=== PATIENT | male | born 1950 | race Caucasian/White ===

== ENCOUNTER 2024-05-23 10:01 | Emergency (ER) | payer MEDICARE, OTHER, SELFPAY ==
[2024-05-23 10:13] VITALS: BP 165/95
[2024-05-23 10:21] LABS: Glucose - Point of Care 271 mg/dl (70-99)
[2024-05-23 10:37] LABS: % Basophils 0.6 % (0-2); % Eosinophils 1.1 % (0-6); % Immature Granulocytes 0.3 % (0-0.5); % Lymphocytes 12.9 % (20.5-51.1); % Monocytes 9.9 % (1.7-9.3); % Neutrophils 75.2 % (42.2-75.2); Absolute Eosinophils 0.1 10^3/uL (0-0.7); Absolute Lymphocytes 0.9 10^3/uL (1.2-3.4); Absolute Monocytes 0.7 10^3/uL (0.1-0.6); Absolute Neutrophils 5.3 10^3/uL (1.4-6.5); Hematocrit 38.8 % (39.0-52.0); Hemoglobin 12.9 g/dL (13.0-18.0); Mean Corp Hgb Conc. 33.2 g/dL (33.0-37.0); Mean Corpuscular Hgb 28.5 pg (27.0-31.0); Mean Corpuscular Volume 85.8 fL (80.0-94.0); Mean Platelet Volume 9.7 fL (7.4-10.4); Nucleated Red Blood Cells % 0 % (-); Platelet Count 271 10^3/uL (130-400); Red Blood Cell Count 4.52 10^6/uL (4.70-6.10); Red Cell Dist. Width 13.2 % (11.5-14.5)
[2024-05-23 10:57] LABS: ALT (SGPT) 15 U/L (0-50); AST (SGOT) 19 U/L (17-59); Albumin 3.6 g/dl (3.5-5.0); Alkaline Phosphatase 93 U/L (38-126); Blood Urea Nitrogen 20 mg/dl (9-20); Calcium 9.2 mg/dl (8.4-10.2); Carbon Dioxide 23 mmol/L (22-30); Chloride 97 mmol/L (98-107); Glucose 311 mg/dl (70-99); Lipase 117 U/L (23-300); Potassium 3.8 mmol/L (3.5-5.1); Sodium 134 mmol/L (135-145); eGFR > 60.00
[2024-05-23 11:05] LABS: B-Hydroxybutyrate 3.26 mmol/L (0.02-0.27)
[2024-05-23 11:38] LABS: COVID-19 Antigen Negative (Negative)
[2024-05-23 12:33] VITALS: BP 137/83
--- NOTE | 2024-05-23 13:12 | ED.GENMED ---
History of Present Illness
<Gisell Panda PA-C - Last Filed: 05/23/24 19:40>
General
Chief Complaint: Pneumonia Symptoms
Source: patient
Exam Limitations: none
Time Seen by Provider: 05/23/24 13:04
Nursing documentation reviewed up to this point in time: agreed with
History of Present Illness
History of Present Illness:
73-year-old male with past medical history of hypertension, hyperlipidemia, insulin-dependent diabetes, GERD who presents emergency department today with concerns of generalized weakness and high blood sugars. Patient reports that on May 06, he
[place] diagnosed with [place]. Patient reports that since then, he has had a persistent cough and feels like he is not getting better. Patient was treated with amoxicillin and azithromycin. Patient had a x-ray
at the time which confirmed a pneumonia. Patient denies any fevers or chills at home. Patient feels like his cough is not going away. Patient also reports that he has had a decreased appetite and this past week, he did have episode of nausea but
no vomiting. Denies any belly pain. He states that he is had trouble controlling his blood sugars recently. He denies any burning with urination, denies any diarrhea.
Review of Systems
<Gisell Panda PA-C - Last Filed: 05/23/24 19:40>
Review of Systems
All Other Systems: ROS reviewed and negative except as documented in HPI and ROS
Phy Exam
<Gisell Panda PA-C - Last Filed: 05/23/24 19:40>
Physical Exam
Physical Exam:
General: Patient is well appearing and in no acute distress; non-toxic
Skin: Warm and dry, no rashes or lesions
Head: Normocephalic, atraumatic
Eyes: Sclera non-icteric. EOMs intact.
Cardiac: Regular rate and rhythm, no murmur
Peripheral Vascular: No lower extremity swelling or edema
Pulm: Normal respiratory effort, no wheezes, rales, rhonchi
Abdomen: No abdominal tenderness to palpation
Neuro: CN II-XII intact, no focal neurologic deficits.
Psychiatric: Appropriate mood and affect.
Course
Edlt;Gisell Panda PA-C - Last Filed: 05/23/24 19:40>
Orders/Labs/Results
Orders:
Orders
05/23/24 10:21
CR Chest - 2 Views Urgent
Comment:
Reason For Exam: cough
05/23/24 10:27
B-Hydroxybutyrate Urgent
COVID-19 Antigen Urgent
Source: Nasal Swab
Complete Blood Count/With Diff Urgent
Comprehensive Metabolic Panel Urgent
Lipase Urgent
Influenza A+B Rapid Molecular Urgent
MARY Source: Nasal Swab
Specimen Description:
05/23/24 13:50
0.9% Sodium Chloride 1000 ml [Nss] 1,000 ml IV BOLUS
05/23/24 14:06
Ipratropium/Albuterol Sulfate [Duoneb] 3 ml INH R NOW ONE
05/23/24 14:45
Urinalysis Reflex To Culture Urgent
Date Specimen was Collected: 05/23/24
Time Specimen was Collected: 14:43
Urine Microscopic Reflex Cult Urgent
Venous Blood Gas Urgent
%Oxygen/Room Air: 98
Urine Culture Urgent
MARY Source: U
Specimen Description:
Date Specimen was Collected: 05/23/24
Time Specimen was Collected: 14:43
05/23/24 15:20
Insulin Human Regular [Novolin R] 5 units IV NOW STA
Abnormal Lab Results
05/23/24 05/23/24 05/23/24
10:20 10:27 14:45
RBC 4.52 L 10^6/uL
(4.70-6.10)
Hgb 12.9 L g/dL
(13.0-18.0)
Hct 38.8 L %
(39.0-52.0)
Absolute Lymphs (auto) 0.9 L 10^3/uL
(1.2-3.4)
Absolute Monos (auto) 0.7 H 10^3/uL
(0.1-0.6)
Lymphocytes % 12.9 L %
(20.5-51.1)
Monocytes % 9.9 H %
(1.7-9.3)
Sodium 134 L mmol/L
(135-145)
Chloride 97 L mmol/L
(98-107)
Glucose 311 H mg/dl
(70-99)
Total Protein 6.0 L g/dl
(6.3-8.2)
Urine Ketones 3+ A
(Negative)
Ur Occult Blood Reflex 2+ A
(Negative)
Urine RBC 3-6 A /HPF
(0-2)
Urine Bacteria (Reflex) Moderate A
(Negative)
Urine Glucose 4+ A
(Negative)
Urine Albumin (Reflex) 2+ A
(Neg - Trace)
B-Hydroxybutyrate 3.26 H mmol/L
(0.02-0.27)
POC Glucose 271 H mg/dl
(70-99)
05/23/24 05/23/24
15:38 16:34
RBC
Hgb
Hct
Absolute Lymphs (auto)
Absolute Monos (auto)
Lymphocytes %
Monocytes %
Sodium
Chloride
Glucose
Total Protein
Urine Ketones
Ur Occult Blood Reflex
Urine RBC
Urine Bacteria (Reflex)
Urine Glucose
Urine Albumin (Reflex)
B-Hydroxybutyrate
POC Glucose 267 H mg/dl 277 H mg/dl
(70-99) (70-99)
05/23/24 10:27
05/23/24 15:12
Vital Signs
Initial and Last Documented VS:
Initial Vital Signs
Temp Pulse Resp BP Pulse Ox
97.8 F 81 16 165/95 96
05/23/24 10:13 05/23/24 10:13 05/23/24 10:13 05/23/24 10:13 05/23/24 10:13
Last Documented Vital Signs
Temp Pulse Resp BP Pulse Ox
97.8 F 84 18 163/67 99
05/23/24 10:13 05/23/24 17:00 05/23/24 17:00 05/23/24 16:00 05/23/24 16:45
<Jayant Lmaas, DO - Last Filed: 05/23/24 15:44>
Orders/Labs/Results
Orders:
Orders
05/23/24 10:21
CR Chest - 2 Views Urgent
Comment:
Reason For Exam: cough
05/23/24 10:27
B-Hydroxybutyrate Urgent
COVID-19 Antigen Urgent
Source: Nasal Swab
Complete Blood Count/With Diff Urgent
Comprehensive Metabolic Panel Urgent
Lipase Urgent
Influenza A+B Rapid Molecular Urgent
MARY Source: Nasal Swab
Specimen Description:
05/23/24 13:50
0.9% Sodium Chloride 1000 ml [Nss] 1,000 ml IV BOLUS
05/23/24 14:06
Ipratropium/Albuterol Sulfate [Duoneb] 3 ml INH R NOW ONE
05/23/24 14:45
Urinalysis Reflex To Culture Urgent
Date Specimen was Collected: 05/23/24
Time Specimen was Collected: 14:43
Urine Microscopic Reflex Cult Urgent
Venous Blood Gas Urgent
%Oxygen/Room Air: 98
Urine Culture Urgent
MARY Source: U
Specimen Description:
Date Specimen was Collected: 05/23/24
Time Specimen was Collected: 14:43
05/23/24 15:20
Insulin Human Regular [Novolin R] 5 units IV NOW STA
Abnormal Lab Results
05/23/24 05/23/24 05/23/24
10:20 10:27 14:45
RBC 4.52 L 10^6/uL
(4.70-6.10)
Hgb 12.9 L g/dL
(13.0-18.0)
Hct 38.8 L %
(39.0-52.0)
Absolute Lymphs (auto) 0.9 L 10^3/uL
(1.2-3.4)
Absolute Monos (auto) 0.7 H 10^3/uL
(0.1-0.6)
Lymphocytes % 12.9 L %
(20.5-51.1)
Monocytes % 9.9 H %
(1.7-9.3)
Sodium 134 L mmol/L
(135-145)
Chloride 97 L mmol/L
(98-107)
Glucose 311 H mg/dl
(70-99)
Total Protein 6.0 L g/dl
(6.3-8.2)
Urine Ketones 3+ A
(Negative)
Ur Occult Blood Reflex 2+ A
(Negative)
Urine RBC 3-6 A /HPF
(0-2)
Urine Bacteria (Reflex) Moderate A
(Negative)
Urine Glucose 4+ A
(Negative)
Urine Albumin (Reflex) 2+ A
(Neg - Trace)
B-Hydroxybutyrate 3.26 H mmol/L
(0.02-0.27)
POC Glucose 271 H mg/dl
(70-99)
05/23/24 05/23/24
15:38 16:34
RBC
Hgb
Hct
Absolute Lymphs (auto)
Absolute Monos (auto)
Lymphocytes %
Monocytes %
Sodium
Chloride
Glucose
Total Protein
Urine Ketones
Ur Occult Blood Reflex
Urine RBC
Urine Bacteria (Reflex)
Urine Glucose
Urine Albumin (Reflex)
B-Hydroxybutyrate
POC Glucose 267 H mg/dl 277 H mg/dl
(70-99) (70-99)
05/23/24 10:27
05/23/24 15:12
Vital Signs
Initial and Last Documented VS:
Initial Vital Signs
Temp Pulse Resp BP Pulse Ox
97.8 F 81 16 165/95 96
05/23/24 10:13 05/23/24 10:13 05/23/24 10:13 05/23/24 10:13 05/23/24 10:13
Last Documented Vital Signs
Temp Pulse Resp BP Pulse Ox
97.8 F 84 18 163/67 99
05/23/24 10:13 05/23/24 17:00 05/23/24 17:00 05/23/24 16:00 05/23/24 16:45
Edlt;Gisell Panda PA-C - Last Filed: 05/23/24 19:40>
MDM/Problems Addressed
Differential Diagnosis Includes:
Differentials include hyperglycemia, pneumonia, DKA, hyponatremia, UTI, acute bronchitis
MDM/Problems Addressed:
73-year-old male presents emergency department today with concerns of persistent symptoms following a pneumonia infection few weeks ago. He also reports that this past week he has felt weak and feels like he has had trouble controlling his blood
sugars. Patient denies being placed on a steroid. Upon arrival to emergency department he is well-appearing in no acute distress he is afebrile. He is hyperglycemic to 311, anion gap 14 although no evidence of acidosis, improvement in renal
function, does have ketonuria and some glucose in his urine as well. Patient was given a bag of IV fluids as well as a dose of insulin. Chest x-ray was repeated which today does not show any evidence of pneumonia or acute cardiopulmonary process.
Suspect prolonged cough from illness and suspect that his infection with pneumonia because temporarily spike his blood sugars. Patient reports that he is trying to find and establish care with plating stripper. Patient states he seen to make an
appointment to see his primary to help bridge the gap in the week. Patient stable for discharge.
<Gisell Panda PA-C - Last Filed: 05/23/24 19:40>
*Pulse Oximetry
Patient hypoxic: no
*Critical Care Note
Total Time (30-74mins, 75-104mins- exclusive of procedures): Not Applicable
Data Reviewed
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
ED Attending Note
<Gisell Panda PA-C - Last Filed: 05/23/24 19:40>
-
Portions of this chart may have been created with voice recognition software.� Occasional wrong word or��sound alike� substitutions may have occurred due to the inherent limitations of voice recognition software.
<Jayatn Lamas DO - Last Filed: 05/23/24 15:44>
ED Attending Note
Patient seen and examined by attending physician: Yes
I performed a history and physical exam of patient and discussed management with resident, I reviewed resident's note and agree with documented findings and plan of care.: Yes
ED Attending Note:
I reviewed and agree with history and plan by Gisell Panda. My exam revealed 73-year-old male no acute distress. Lungs clear. Vital signs stable. Will give dose of IV insulin, IV fluids, recheck glucose and discharged follow-up primary care.
Return precautions given.
Discharge Plan
Departure
Patient Disposition: Home (Routine Discharge)
Date of Disposition: 05/23/24
Time of Disposition: 16:50
Patient with high blood pressure during this ER visit?: Yes
Condition: Good
Discharge Problem:
Acute hyperglycemia, Generalized weakness
Instructions: High blood sugar in adults - ED discharge instructions, BLOOD PRESSURE
Referrals:
Cristhian Jo MD [Family Provider] -
Activity Restrictions/Additional Instructions:
Please follow-up with your primary care provider and continue to try to find an plating stripper near you for evaluation.
PLEASE RETURN EMERGENCY DEPARTMENT SHOULD YOU DEVELOP NAUSEA AND VOMITING, FEVERS OR CHILLS, LIGHTHEADEDNESS OR FAINTING SPELLS, CHEST PAIN OR SHORTNESS OF BREATH, WEAKNESS IN ONE-SIDED BODY VERSUS OTHER, DIFFICULTY AMBULATING, OR ANY OTHER SIGNS OR
SYMPTOMS WORRISOME TO YOU.
Interventions
Interventions:
*Risk Screen - Suicide Last Done: 05/23/24 10:13
*General Assessment Last Done: 05/23/24 10:13
*Neglect/Abuse Screening Last Done: 05/23/24 14:30
*ED COVID-19 Vaccine History Last Done: 05/23/24 14:30
*Nursing Disposition Last Done: 05/23/24 17:14
ED- Cardiac Assessment Last Done: 05/23/24 14:30
ED- Pulmonary Assessment Last Done: 05/23/24 14:30
Discharge Date and Time
Discharge Date/Time: 05/23/24 17:14
Print Language: HUNGARIAN
[2024-05-23 14:00] VITALS: BP 139/67
[2024-05-23] MEDS: NSS 1000 IV (14:44)
[2024-05-23] MEDS: DUONEB 3 ML INH (14:47)
[2024-05-23 14:50] VITALS: BMI 22.0
[2024-05-23 14:53] LABS: Venous Blood Gas B.E. 0.1 mmol/L (-4 to +4); Venous Blood Gas HCO3 25.4 mmol/L (22-27); Venous Blood Gas O2 Sat % 84.7 %; Venous Blood Gas pCO2 43 mmHg (35-48); Venous Blood Gas pH 7.38 (7.32-7.43); Venous Blood Gas pO2 50 mmHg (30-50)
[2024-05-23 14:59] LABS: Urine Albumin 2+ (Neg - Trace); Urine Bilirubin Negative (Negative); Urine Character Clear (Clear); Urine Color Yellow; Urine Glucose 4+ (Negative); Urine Ketone 3+ (Negative); Urine Leukocyte Negative (Negative); Urine Nitrite Negative (Negative); Urine Occult Blood 2+ (Negative); Urine Specific Gravity 1.025 (<1.030); Urine Urobilinogen Negative (Neg - 1+)
[2024-05-23 15:10] VITALS: BP 147/67
[2024-05-23 15:20] LABS: Urine Hyaline Cast >15 /LPF (0-2)
[2024-05-23 15:22] LABS: Urine Squamous Cell 0-2 /LPF (Few)
[2024-05-23 15:23] LABS: Urine Bacteria Moderate (Negative)
[2024-05-23 15:39] LABS: Glucose - Point of Care 267 mg/dl (70-99)
[2024-05-23] MEDS: NOVOLIN R 5 UNITS IV (15:52)
[2024-05-23 16:00] VITALS: BP 163/67
[2024-05-23 16:36] LABS: Glucose - Point of Care 277 mg/dl (70-99)
== END 2024-05-23 17:14 | disposition home or self-care (01) ==
LOC: EMR 10:01
PROVIDERS: Physician Assistant; Student in an Organized Health Care Education/Training Program; EMERGENCY PHYSICIAN Emergency Medicine; FAMILY PHYSICIAN Internal Medicine
DX: E11.65 Type 2 diabetes mellitus with hyperglycemia (principal); R53.1 Weakness; I10 Essential (primary) hypertension; E78.00 Pure hypercholesterolemia, unspecified; K21.9 Gastro-esophageal reflux disease without esophagitis
CPT/HCPCS: 99283; 94640; 96360; 96372; 71046; 80053; 81003; 81015; 82010; 82805; 82962; 83690; 85025; 87086; 87502; 87811